=== PATIENT | female | born 1970 | race Caucasian/White ===

== ENCOUNTER → 2016-11-26 | Outpatient (CLI) | payer OTHER ==
--- NOTE | 2016-11-27 15:38 | RAD ---
Indication: Left wrist pain. Time of exam 10:54 AM 2 views left wrist were obtained. The distal radius and ulna are intact. The carpus is intact. No fractures are seen. The metacarpals are unremarkable. Impression: No acute bony abnormality is detected.
== END | disposition home or self-care (01) ==
LOC: LAB 10:40
PROVIDERS: ATTEND Internal Medicine Hematology & Oncology
DX: M25.532 Pain in left wrist (principal)
CPT/HCPCS: 73100

== ENCOUNTER → 2016-12-03 | Outpatient (CLI) | payer OTHER ==
[~2016-12-03] MED LIST: GADOBUTROL 10 MMOL/10 ML VIAL IV ONE
--- NOTE | 2016-12-03 09:39 | RAD ---
PROCEDURE Brain MRI with and without contrast. HISTORY Headaches. Breast cancer. TECHNIQUE Multiplanar and multi sequence magnetic resonance imaging of the brain was performed prior to and following the administration of 10 cc Gadavist intravenous contrast. COMPARISON None. FINDINGS There is no restricted diffusion to suggest acute or subacute infarction. There is no susceptibility effect to suggest hemorrhage. There is no mass effect or midline shift. There is no hydrocephalus. There is a focus of FLAIR hyperintensity and T1 hypointensity within the anterior limb of the left internal capsule and the adjacent left caudate nucleus, likely of no clinical significance. There is nonspecific FLAIR hyperintensity surrounding the frontal and occipital horns, within physiologic limits. No enhancing lesion is seen. There are normal flow voids within the cerebral vessels. The orbits are unremarkable. There is a small left maxillary sinus mucous retention cyst and there is mild ethmoid sinus mucosal thickening. There is a small amount of fluid within the mastoid air cells. IMPRESSION No acute intracranial finding or evidence of metastatic disease. Electronically signed by: Chayito Arevalo (Dec 03, 2016 09:38:16)
== END | disposition home or self-care (01) ==
LOC: MRI 08:11
PROVIDERS: ATTEND Internal Medicine Hematology & Oncology
DX: Z13.71 Encounter for nonprocreative screening for genetic disease carrier status (principal); Z85.3 Personal history of malignant neoplasm of breast; R51 Headache; R41.3 Other amnesia; M25.532 Pain in left wrist
CPT/HCPCS: 70553; A9585